=== PATIENT | female | born 1955 | race Caucasian/White ===

== ENCOUNTER → 2017-05-06 | Outpatient (CLI) | payer BC ==
--- NOTE | 2017-05-08 09:46 | MM ---
Reason for exam: screening (asymptomatic). Last mammogram was performed 1 year ago. History: Patient is postmenopausal. Family history of premenopausal breast cancer in mother at age 42. Excisional biopsy of the left breast, August 01, 2006. Excisional biopsy of the right breast, 2004. Took hormonal contraceptives for 5 years beginning at age 18. Taking estrogen for 1 year. Physical Findings: A clinical breast exam by your physician is recommended on an annual basis and results should be correlated with mammographic findings. MG Screening Mammo w CAD Bilateral CC and MLO view(s) were taken. Prior study comparison: April 22, 2016, bilateral MG screening mammo w CAD. March 30, 2015, bilateral MG screening mammo w CAD. January 07, 2014, bilateral digital screening mammo w/CAD. There are scattered fibroglandular densities. No significant changes when compared with prior studies. ASSESSMENT: Benign, BI-RAD 2 RECOMMENDATION: Routine screening mammogram of both breasts in 1 year.
== END | disposition home or self-care (01) ==
LOC: RADMAMWWP 08:51
PROVIDERS: ATTEND Obstetrics & Gynecology
DX: Z12.31 Encounter for screening mammogram for malignant neoplasm of breast (principal)

== ENCOUNTER → 2018-05-14 | Outpatient (CLI) | payer BC ==
--- NOTE | 2018-05-14 11:59 | US ---
EXAMINATION TYPE: US liver DATE OF EXAM: 05/14/2018 COMPARISON: NONE CLINICAL HISTORY: R94.5 ELEVATED LIVER ENZYMES. Elevated LFT's EXAM MEASUREMENTS: Liver Length: 18.6 cm CBD: 0.6 cm Right Kidney: 10.3 x 5.1 x 5.3 cm Pancreas: wnl, tail obscured by overlying bowel gas Liver: Enlarged, difficult to penetrate, limited visualization Gallbladder: Surgically absent Evidence for sonographic Snow's sign: No CBD: wnl Right Kidney: Visualized portions appeared wnl IMPRESSION: 1. Hepatomegaly with underlying fatty hepatic infiltration.
== END | disposition home or self-care (01) ==
LOC: RADUSWWP 10:11
PROVIDERS: ATTEND Family Medicine
DX: K76.0 Fatty (change of) liver, not elsewhere classified (principal); R16.0 Hepatomegaly, not elsewhere classified
CPT/HCPCS: 76705

== ENCOUNTER → 2018-06-03 | Outpatient (CLI) | payer BC ==
--- NOTE | 2018-06-03 16:23 | BD ---
EXAMINATION TYPE: Axial Bone Density DATE OF EXAM: 06/03/2018 COMPARISON: NONE CLINICAL HISTORY: Height: 5 FT 4 1/2 IN Weight: 215 FRAX RISK QUESTIONS: RISK FACTORS HISTORY OF: Active: SOMEWHAT Postmenopausal woman: TOTAL HYST AGE 44 Take estrogen and/or progesterone medications: TAKES KOVARYX How lon YRS MEDICATIONS: Additional Medications: PRILOSEC, TENORMIN, LOSARTIN/HCT,NAPROSEN, ADIPEX, ZYRTEC Additional History: EXAM MEASUREMENTS: Bone mineral densitometry was performed using the [employer] System. Bone mineral density as measured about the Lumbar spine is: ----- L1-L4(G/cm2): 1.278 T Score Values are as follows: ----- L2: 0.7 ----- L3: 0.9 ----- L4: 1.6 ----- L1-L4: 0.8 Bone mineral density has: INCREASED 5.6 % since study of: 2015 Bone mineral density about the R hip (g/cm2): 0.965 Bone mineral density about the L hip (g/cm2): 0.914 T Score values are as follows: -----R Neck: -0.5 -----L Neck: -0.9 -----R Total: -0.2 -----L Total: -0.3 Bone mineral density has: INCREASED 2.7 % since study of: 2015 IMPRESSION: Normal (Values between +1 and -1 indicate normal bone mass). Consider repeating this study in 5 year s or sooner if there is some new clinical indication. NOTE: T-SCORE=SD OF THE YOUNG ADULT MEAN.
--- NOTE | 2018-06-04 13:36 | MM ---
Reason for exam: screening (asymptomatic). Last mammogram was performed 1 year and 1 month ago. History: Patient is postmenopausal. Family history of premenopausal breast cancer in mother at age 42. Excisional biopsy of the left breast, August 01, 2006. Excisional biopsy of the right breast, 2004. Took hormonal contraceptives for 5 years beginning at age 18. Taking estrogen for 1 year. Physical Findings: A clinical breast exam by your physician is recommended on an annual basis and results should be correlated with mammographic findings. MG 3D Screening Mammo W/Cad Bilateral CC and MLO view(s) were taken. Prior study comparison: May 06, 2017, bilateral MG screening mammo w CAD. April 22, 2016, bilateral MG screening mammo w CAD. There are scattered fibroglandular densities. Finding: There are typically benign round, diffuse/scattered and grouped calcifications in both breasts. There is no discrete abnormality. ASSESSMENT: Benign, BI-RAD 2 RECOMMENDATION: Routine screening mammogram of both breasts in 1 year.
== END | disposition home or self-care (01) ==
LOC: RADMAMWWP 09:22
PROVIDERS: ATTEND Obstetrics & Gynecology
DX: Z12.31 Encounter for screening mammogram for malignant neoplasm of breast (principal); N95.1 Menopausal and female climacteric states; Z13.820 Encounter for screening for osteoporosis
CPT/HCPCS: 77063; 77067; 77080

== ENCOUNTER → 2018-09-18 | Outpatient (CLI) | payer BC ==
--- NOTE | 2018-09-18 13:03 | XR ---
EXAMINATION TYPE: XR cervical spine w flex/ext DATE OF EXAM: 09/18/2018 TECHNIQUE: Frontal, lateral, oblique, swimmers, and open mouth view of the cervical spine are obtaine d. Additional flexion and extension views are obtained. HISTORY: cervical spine pain COMPARISON: None FINDINGS: The cervical spine is visualized in its entirety from C1 thru the top of T1 level, it is s atisfactory in alignment without evidence of acute fracture or dislocation. Normal alignment at flexi on, extension and neutral. The pre-vertebral soft tissue appears within normal limits. The C1-C2 art iculation is within normal limits on the open mouth view. The oblique images are within normal limit s. IMPRESSION: No acute fracture or dislocation is seen in the cervical spine. No significant degenerat raj change.
== END | disposition home or self-care (01) ==
LOC: RADXRYALE 11:33
PROVIDERS: ATTEND Family Medicine
DX: M54.2 Cervicalgia (principal)
CPT/HCPCS: 72052

== ENCOUNTER → 2018-10-26 | Outpatient (CLI) | payer BC ==
--- NOTE | 2018-10-26 14:58 | XR ---
EXAMINATION TYPE: XR foot complete LT DATE OF EXAM: 10/26/2018 COMPARISON: None HISTORY: Foot pain TECHNIQUE: Three-view left foot FINDINGS: Plantar calcaneal heel spur is present. No acute fractures or dislocations are evident. Sof t tissues appear normal. IMPRESSION: 1. Plantar calcaneal heel spur.
== END | disposition home or self-care (01) ==
LOC: RADXRYALE 14:31
PROVIDERS: ATTEND Family Medicine
DX: M77.32 Calcaneal spur, left foot (principal); M79.672 Pain in left foot

== ENCOUNTER → 2019-04-20 | Outpatient (CLI) | payer BC ==
--- NOTE | 2019-04-20 11:25 | XR ---
EXAMINATION TYPE: XR hand complete RT DATE OF EXAM: 04/20/2019 CLINICAL HISTORY: Right middle finger pain and swelling distally TECHNIQUE: Frontal, lateral and oblique images of the right hand are obtained. COMPARISON: None. FINDINGS: There is no acute fracture/dislocation evident in the right hand. The joint spaces in the right hand appear within normal limits. Soft tissue prominence is seen dorsally over the distal inter phalangeal joint of the third digit on the lateral view. No osseous erosion or periosteal reaction. IMPRESSION: There is no acute fracture or dislocation in the right hand. No osseous erosion or evide nce of osteomyelitis. Dorsal soft tissue swelling over the distal interphalangeal joint of the digit is seen likely relating to the palpable abnormality. If there is further concern, ultrasound could be performed.
== END | disposition home or self-care (01) ==
LOC: RADXRYALE 10:40
PROVIDERS: ATTEND Family Medicine
DX: M79.89 Other specified soft tissue disorders (principal); M10.9 Gout, unspecified

== ENCOUNTER → 2019-06-21 | Outpatient (CLI) | payer BC ==
--- NOTE | 2019-06-23 11:17 | MM ---
Reason for exam: screening (asymptomatic). Last mammogram was performed 1 year and 1 month ago. History: Patient is postmenopausal. Family history of premenopausal breast cancer in mother at age 42. Excisional biopsy of the left breast, August 01, 2006. Excisional biopsy of the right breast, 2004. Took hormonal contraceptives for 5 years beginning at age 18. Taking estrogen for 1 year. Physical Findings: A clinical breast exam by your physician is recommended on an annual basis and results should be correlated with mammographic findings. MG 3D Screening Mammo W/Cad Bilateral CC and MLO view(s) were taken. Prior study comparison: June 03, 2018, bilateral MG 3d screening mammo w/cad. May 06, 2017, bilateral MG screening mammo w CAD. There are scattered fibroglandular densities. No significant changes when compared with prior studies. ASSESSMENT: Negative, BI-RAD 1 RECOMMENDATION: Routine screening mammogram of both breasts in 1 year.
== END | disposition home or self-care (01) ==
LOC: RADMAMWWP 09:24
PROVIDERS: ATTEND Obstetrics & Gynecology
DX: Z12.31 Encounter for screening mammogram for malignant neoplasm of breast (principal)
CPT/HCPCS: 77063; 77067

== ENCOUNTER → 2020-08-02 | Outpatient (CLI) | payer BC ==
--- NOTE | 2020-08-02 08:51 | BD ---
EXAMINATION TYPE: Axial Bone Density DATE OF EXAM: 08/02/2020 COMPARISON: NONE CLINICAL HISTORY: Height: 5 FT 5 IN Weight: 194 FRAX RISK QUESTIONS: Alcohol (3 or more units per day): NO Family History (Parent hip fracture): NO Glucocorticoids (More than 3mos): NO (Ex: prednisone, prednisolone, methylprednisolone, dexamethasone, and hydrocortisone). History of Fracture in Adulthood: NO Secondary Osteoporosis: 1. Type 1 Diabetes: NO 2. Hyperthyroidism: NO 3. Menopause before 45: NO 4. Malnutrition: NO 5. Chronic liver disease: NO Rheumatoid Arthritis: NO Current Tobacco Use: NO RISK FACTORS HISTORY OF: Family History of Osteoporosis: NO Active: YES Diet low in dairy products/other sources of calcium: NO Postmenopausal woman: TOTAL HYST AGE 44 Take estrogen and/or progesterone medications: TOOK HRT 2-3 YEARS NO LONGER TAKES Lost more than 2 inches in height since high school: NO MEDICATIONS: Additional Medications: TYLENOL ARTHRITIS, PRILOSEC, TENORMIN, LOSARTIN, ZYRTEC, ADIPEX, VIT B12 Additional History: CARPAL TUNNEL SURG EXAM MEASUREMENTS: Bone mineral densitometry was performed using the [employer] System. Bone mineral density as measured about the Lumbar spine is: ----- L1-L4(G/cm2): 1.189 T Score Values are as follows: ----- L2: 0.4 ----- L3: 0.2 ----- L4: 0.1 ----- L1-L4: 0.1 Bone mineral density has: DECREASED -7.6 % since study of: 2017 Bone mineral density about the R hip (g/cm2): 0.889 Bone mineral density about the L hip (g/cm2): 0.833 T Score values are as follows: -----R Neck: -1.1 -----L Neck: -1.5 -----R Total: -1.0 -----L Total: -1.2 Bone mineral density has: DECREASED -11.5 % since study of: 2018 IMPRESSION: Osteopenia NOTE: T-SCORE=SD OF THE YOUNG ADULT MEAN.
--- NOTE | 2020-08-04 09:11 | MM ---
Reason for exam: screening (asymptomatic). Last mammogram was performed 1 year and 1 month ago. History: Patient is postmenopausal. Family history of premenopausal breast cancer in mother at age 42. Excisional biopsy of the left breast, August 01, 2006. Excisional biopsy of the right breast, 2004. Took hormonal contraceptives for 5 years beginning at age 18. Took estrogen for 1 year. Physical Findings: A clinical breast exam by your physician is recommended on an annual basis and results should be correlated with mammographic findings. MG 3D Screening Mammo W/Cad Bilateral CC and MLO view(s) were taken. Prior study comparison: June 21, 2019, bilateral MG 3d screening mammo w/cad. June 03, 2018, bilateral MG 3d screening mammo w/cad. There are scattered fibroglandular densities. No significant changes when compared with prior studies. ASSESSMENT: Benign, BI-RAD 2 RECOMMENDATION: Routine screening mammogram of both breasts in 1 year.
== END | disposition home or self-care (01) ==
LOC: RADBDWWP 07:12
PROVIDERS: ATTEND Obstetrics & Gynecology
DX: Z12.31 Encounter for screening mammogram for malignant neoplasm of breast (principal); Z13.820 Encounter for screening for osteoporosis; M85.80 Other specified disorders of bone density and structure, unspecified site
CPT/HCPCS: 77063; 77067; 77080

== ENCOUNTER → 2021-05-24 | Outpatient (CLI) | payer MEDICARE ==
--- NOTE | 2021-05-25 12:59 | MM ---
Reason for exam: screening (asymptomatic). Last mammogram was performed 10 months ago. History: Patient is postmenopausal. Family history of premenopausal breast cancer in mother at age 42. Excisional biopsy of the left breast, August 01, 2006. Excisional biopsy of the right breast, 2004. Took hormonal contraceptives for 5 years beginning at age 18. Took estrogen for 1 year. Physical Findings: A clinical breast exam by your physician is recommended on an annual basis and results should be correlated with mammographic findings. MG 3D Screening Mammo W/Cad Bilateral CC and MLO view(s) were taken. Prior study comparison: August 02, 2020, bilateral MG 3d screening mammo w/cad. June 21, 2019, bilateral MG 3d screening mammo w/cad. The breast tissue is heterogeneously dense. This may lower the sensitivity of mammography. There is no discrete abnormality. No significant changes when compared with prior studies. ASSESSMENT: Negative, BI-RAD 1 RECOMMENDATION: Routine screening mammogram of both breasts in 1 year.
== END | disposition home or self-care (01) ==
LOC: RADMAMWWP 15:06
PROVIDERS: ATTEND Obstetrics & Gynecology
DX: Z12.31 Encounter for screening mammogram for malignant neoplasm of breast (principal); Z78.0 Asymptomatic menopausal state; Z80.3 Family history of malignant neoplasm of breast; Z79.3 Long term (current) use of hormonal contraceptives
CPT/HCPCS: 77063; 77067

== ENCOUNTER → 2022-05-27 | Outpatient (CLI) | payer MEDICARE ==
--- NOTE | 2022-05-28 09:05 | BD ---
EXAMINATION TYPE: Axial Bone Density DATE OF EXAM: 05/27/2022 COMPARISON: NONE CLINICAL HISTORY: 66 years year old Female. ICD-10 CODE: Z78.0 POST MENOPAUSAL Height: 5 FT 4 1/2 IN Weight: 180 FRAX RISK QUESTIONS: Alcohol (3 or more units per day): NO Family History (Parent hip fracture): NO Glucocorticoids (More than 3mos): NO (Ex: prednisone, prednisolone, methylprednisolone, dexamethasone, and hydrocortisone). History of Fracture in Adulthood: NO Secondary Osteoporosis: 1. Type 1 Diabetes: NO 2. Hyperthyroidism: NO 3. Menopause before 45: NO 4. Malnutrition: NO 5. Chronic liver disease: NO Rheumatoid Arthritis: NO Current Tobacco Use: NO RISK FACTORS HISTORY OF: Surgery to Spine/Hip(right/left)/Wrist (right/left): NO Family History of Osteoporosis: NO Active: NO Diet low in dairy products/other sources of calcium: NO Postmenopausal woman: YES Take estrogen and/or progesterone medications: NONE NOW Lost more than 2 inches in height since high school: NO Frequent falls: NO Poor Health: GOOD Hyperparathyroidism: NO Adrenal Insufficiency: NO MEDICATIONS: Additional Medications: LOSARTAN, H2O PILL, METOPROLOL, OMEPRAZOLE Additional History: 2019 STUDY NOT AVAILABLE FOR COMPARISON EXAM MEASUREMENTS: Bone mineral densitometry was performed using the [employer] System. Bone mineral density as measured about the Lumbar spine is: ----- L1-L4(G/cm2): 1.174 T Score Values are as follows: ----- L1: -0.6 ----- L2: -0.5 ----- L3: 0.4 ----- L4: 0.1 ----- L1-L4: -0.1 Bone mineral density has: DECREASED -9.3 % since study of: 2017 Bone mineral density about the R hip (g/cm2): 0.746 Bone mineral density about the L hip (g/cm2): 0.693 T Score values are as follows: -----R Neck: -2.1 -----L Neck: -2.5 -----R Total: -2.0 -----L Total: -2.4 Bone mineral density has: DECREASED -25.4 % since study of: 2017 FRAX%s: The graph provided illustrates a 13.9 % chance for a major osteoporotic fx and a 3.3 % chance for the hips probability for fx in 10 years time. IMPRESSION: Osteopenia (T Score between -2.5 and -1). There is slightly increased risk of fracture and the patient may be considered for treatment. Re-Screen 2-5 years. NOTE: T-SCORE=SD OF THE YOUNG ADULT MEAN.
--- NOTE | 2022-05-31 18:28 | MM ---
Reason for Exam: Screening (asymptomatic). Last screening mammogram was performed 12 month(s) ago. Patient History: Menarche at age 10. First Full-Term at age 24. Left ovary removed at age 44. Right ovary removed at age 44. Hysterectomy at age 44. Postmenopausal. Patient used Estrogen for 3 years. Hormonal Contraceptives for 5 years from age 18 until age 23. 08/01/2006, Excisional Biopsy on the Left side. 2004, Excisional Biopsy on the Right side. Mother had breast cancer, age 42. Risk Values: Mary Anne 5 year model risk: 5.0%. NCI Lifetime model risk: 15.5%. Prior Study Comparison: 06/21/2019 Bilateral Screening Mammogram, [facility]. 08/02/2020 Bilateral Screening Mammogram, [facility]. 05/24/2021 Bilateral Screening Mammogram, [facility]. Tissue Density: There are scattered fibroglandular densities. Findings: Analyzed By CAD. There is no suspicious group of microcalcifications or new suspicious mass in either breast. Overall Assessment: Negative, BI-RAD 1 Management: Screening Mammogram of both breasts in 1 year. A clinical breast exam by your physician is recommended on an annual basis and results should be correlated with mammographic findings. Electronically signed and approved by: Chava Abbasi DO
== END | disposition home or self-care (01) ==
LOC: RADMAMWWP 15:44
PROVIDERS: ATTEND Obstetrics & Gynecology
DX: Z12.31 Encounter for screening mammogram for malignant neoplasm of breast (principal); M81.0 Age-related osteoporosis without current pathological fracture; Z78.0 Asymptomatic menopausal state; Z80.3 Family history of malignant neoplasm of breast
CPT/HCPCS: 77063; 77067; 77080

== ENCOUNTER → 2022-06-03 | Outpatient (CLI) | payer MEDICARE ==
--- NOTE | 2022-06-03 15:39 | XR ---
EXAMINATION TYPE: XR lumbosacral spine min 4V DATE OF EXAM: 06/03/2022 Comparison: None Clinical History: 66-year-old female [id number] DORSALGIA Findings: Facet arthropathy mid to lower lumbar spine. Trace grade 1 anterolisthesis L3-L4, L4-L5, and L5-S1. R emaining alignment is maintained. Vertebral body heights are preserved. No pars interarticularis defe ct. Cholecystectomy clips. 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 No verte bral compression collapse or malalignment.
== END | disposition home or self-care (01) ==
LOC: RADXRYALE 11:08
PROVIDERS: ATTEND Physician Assistant
DX: M47.816 Spondylosis without myelopathy or radiculopathy, lumbar region (principal); M43.16 Spondylolisthesis, lumbar region
CPT/HCPCS: 72110

== ENCOUNTER → 2024-06-09 | Outpatient (CLI) | payer MEDICARE ==
--- NOTE | 2024-06-14 09:49 | MM ---
Reason for Exam: Screening (asymptomatic). Last screening mammogram was performed 12 month(s) ago. Patient History: Menarche at age 10. First Full-Term at age 24. Left ovary removed at age 44. Right ovary removed at age 44. Hysterectomy at age 44. Postmenopausal. Patient used Estrogen for 3 years. Hormonal Contraceptives for 5 years from age 18 until age 23. 08/01/2006, Excisional Biopsy on the Left side. 2004, Excisional Biopsy on the Right side. Mother had breast cancer, age 42. Risk Values: Mary Anne 5 year model risk: 5.1%. NCI Lifetime model risk: 14.2%. Prior Study Comparison: 05/24/2021 Bilateral Screening Mammogram, [facility]. 05/27/2022 Bilateral MG 3D screening mammo w/cad, [facility]. 05/29/2023 Bilateral MG 3D screening mammo w/cad, [facility]. Tissue Density: The breasts are almost entirely fatty. Findings: Analyzed By CAD. Right breast: There is no suspicious group of microcalcifications or new suspicious mass. Left breast: There is no suspicious group of microcalcifications or new suspicious mass. Overall Assessment: Negative, BI-RAD 1 Management: Screening Mammogram of both breasts in [address] [facility] will attempt to contact patient to return for supplemental views and ultrasound if indicated. Patient should continue monthly self-breast exams. A clinical breast exam by your physician is recommended on an annual basis. This exam should not preclude additional follow-up of suspicious palpable abnormalities. Note on Mary Anne scores and lifetime risk: 1. A Mary Anne score greater than 3% is considered moderate risk. If this is the case, consider specialist referral to assess eligibility for a risk reducing agent. 2. If overall lifetime risk for the development of breast cancer is 20% or higher, the patient may qualify for future screening with alternating mammogram and breast MRI. [facility], , 06/14/2024 9:46 AM. Electronically signed and approved by: Chava Abbasi DO
== END | disposition home or self-care (01) ==
LOC: RADMAMWWP 12:37
PROVIDERS: ATTEND Pediatrics
CPT/HCPCS: 77063; 77067

== ENCOUNTER 2024-08-17 09:31 | Day surgery (SDC) | payer MEDICARE ==
[2024-08-17 10:10] VITALS: TEMP 98.2
[2024-08-17] MEDS: IV FLUID CONTINUATION 1,000 ML IV ONE (10:17)
[2024-08-17] MEDS: LACTATED RINGERS 1,000 ML IV SCH (10:19)
[2024-08-17] MEDS: ONDANSETRON 4 MG/2 ML VIAL IVP STA (10:20)
[2024-08-17] MEDS ORDERED: LIDOCAINE 1% INJ 10MG/ML (20 ML MDV) ONE (11:11)
[2024-08-17] MEDS ORDERED: PROPOFOL 10 MG/ML 20 ML VIAL IV ONE (11:11)
--- NOTE | 2024-08-17 11:14 | P.GSHP ---
History of Present Illness H&P Date: 08/17/24 Chief Complaint: Abnormal Cologuard 69-year-old female here for colonoscopy. Last colonoscopy 7 years ago. That was normal. No family history of colon cancer. Recent Cologuard positive. Past Medical History Past Medical History: GERD/Reflux, Hyperlipidemia, Hypertension, Osteoarthritis (OA) Additional Past Medical History / Comment(s): allergies, questionable irregular rhythm- pt to wear holter monitor. urgency with urination. hx of positive testing with sleep apnea. couldnt tolerate cpap, had sinus surgery that helped. History of Any Multi-Drug Resistant Organisms: None Reported Past Surgical History: Cholecystectomy, Hysterectomy Additional Past Surgical History / Comment(s): sinus surgery , Colonoscopy, rt breast bx. left breast bx, rt rotator cuff repair. lt CTR, Rt CTR, strabismus surgery prema. cataract surgery prema. Past Anesthesia/Blood Transfusion Reactions: Postoperative Nausea & Vomiting (PONV) Additional Past Anesthesia/Blood Transfusion Reaction / Comment(s): slow to wake up Smoking Status: Never smoker - Past Family History Mother Family Medical History: Cancer, Myocardial Infarction (PR) Additional Family Medical History / Comment(s): breast cancer Medications and Allergies Home Medications Medication Instructions Recorded Confirmed Type Acetaminophen [Tylenol Arthritis] 1,300 mg PO DIRECTED 08/11/24 08/17/24 History Ascorbic Acid [Vitamin C] 500 mg PO DAILY 08/11/24 08/11/24 History Atorvastatin Calcium 10 mg PO DAILY 08/11/24 08/17/24 History Cholecalciferol [Vitamin D3 (125 125 mcg PO BID 08/11/24 08/11/24 History Mcg = 5000 Iu)] Ibuprofen [Advil] 400 mg PO MOWEFR 08/11/24 08/11/24 History Losartan Potassium [Cozaar] 100 mg PO DAILY 08/11/24 08/11/24 History Metoprolol Succinate (ER) [Toprol 50 mg PO HS 08/11/24 08/17/24 History Xl] Multivit-Min/Iron/Folic/Lutein 1 each PO DAILY 08/11/24 08/11/24 History [Centrum Silver Women Tablet] Omeprazole 20 mg PO DAILY 08/11/24 08/11/24 History Otc Zyrtec 10 mg PO DAILY 08/11/24 08/17/24 History Unk Osteo Bi Flex 1 tab PO DAILY 08/11/24 08/11/24 History Unk Thera Tears Capsules 1 cap PO DAILY 08/11/24 08/11/24 History Venlafaxine HCl ER [Effexor Xr] 75 mg PO DAILY 08/11/24 08/11/24 History hydroCHLOROthiazide 25 mg PO DAILY 08/11/24 08/17/24 History [Hydrochlorothiazide] Allergies Allergy/AdvReac Type Severity Reaction Status Date / Time codeine AdvReac Vomiting Verified 08/17/24 10:10 Surgical - Exam Vital Signs Temp Pulse Resp BP Pulse Ox 98.2 F 106 H 18 140/83 97 08/17/24 10:09 08/17/24 10:09 08/17/24 10:09 08/17/24 10:09 08/17/24 10:09 Physical exam: General: Well-developed, well-nourished HEENT: Normocephalic, sclerae nonicteric Abdomen: Nontender, nondistended Extremities: No edema Neuro: Alert and oriented Assessment and Plan (1) Positive colorectal cancer screening using Cologuard test Narrative/Plan: Will proceed with colonoscopy at this time. Current Visit: Yes Status: Acute Code(s): R19.5 - OTHER FECAL ABNORMALITIES SNOMED Code(s): 322311549
--- NOTE | 2024-08-17 11:29 | P.PCN ---
Date of Procedure: 08/17/24 Procedure(s) Performed: PREOPERATIVE DIAGNOSIS: Positive Cologuard POSTOPERATIVE DIAGNOSIS: Diverticulosis, tortuous colon PROCEDURE: Colonoscopy ANESTHESIA: MAC SURGEON: Matt Montez M.D. SPECIMENS: None ENDOSCOPIC PROCEDURE: The patient was placed on the endoscopy table in the left decubitus position. The Olympus colonoscope was inserted into the anus and passed under direct visualization to the base of the cecum. The appendiceal orifice was visualized. From that point the scope was slowly withdrawn inspecting all surfaces carefully. There were no neoplastic inflammatory or polypoid lesions throughout the cecum, ascending, transverse, descending, sigmoid and rectum. There was some retained semisolid stool throughout. This limited our visualization slightly. Patient had moderate left-sided diverticulosis with significant tortuosity of the colon. Digital rectal examination was normal. The patient was taken to the recovery room in stable condition per anesthesia guidelines. RECOMMENDATIONS: Resume diet. Repeat colonoscopy 10 years.
[2024-08-17 11:37] VITALS: RESP 16
[2024-08-17 11:49] VITALS: BP 99/67; PULSE 84
== END 2024-08-17 12:04 | disposition home or self-care (01) ==
LOC: ORWHC2ENDO 09:31
PROVIDERS: ATTEND Surgery
DX: Z12.11 Encounter for screening for malignant neoplasm of colon (principal); K57.30 Diverticulosis of large intestine without perforation or abscess without bleeding; K21.9 Gastro-esophageal reflux disease without esophagitis; I10 Essential (primary) hypertension; E78.5 Hyperlipidemia, unspecified; G47.30 Sleep apnea, unspecified; M19.90 Unspecified osteoarthritis, unspecified site; F32.A Depression, unspecified; Z91.89 Other specified personal risk factors, not elsewhere classified; Z79.899 Other long term (current) drug therapy; Z88.5 Allergy status to narcotic agent
CPT/HCPCS: J2405; J2003; J2704; G0121; 45378

== ENCOUNTER → 2024-08-30 | Outpatient (CLI) | payer MEDICARE ==
--- NOTE | 2024-09-07 15:07 | P.EPPROC ---
- EP Procedure Note Electrophysiology Procedure Note: Holter monitor shows sinus mechanism, heart rates ranging from 57-127 beats a minute Average heart rates in the 70s PVC burden of about 4-5% No nonsustained VT
--- NOTE | 2024-09-10 10:28 | HM ---
Holter monitor shows sinus mechanism, heart rates ranging from 57-127 beats a minute Average heart rates in the 70s PVC burden of about 4-5% No nonsustained VT MTDD
== END | disposition home or self-care (01) ==
LOC: RADECHMAIN 07:57
PROVIDERS: ATTEND Pediatrics
DX: I49.3 Ventricular premature depolarization (principal)
CPT/HCPCS: 93225

== ENCOUNTER → 2024-11-16 | Outpatient (CLI) | payer MEDICARE ==
--- NOTE | 2024-11-16 17:57 | CA ---
Transthoracic Echo Report Name: Irlanda Rider Age: 69 Gender: F : 1955 Exam Date: 11/16/2024 13:42 Exam Location: [facility] Ht (in): 65 Wt (lb): 196 Ordering Physician: Rolo Sorenson MD Attending/Referring Phys: Amy Ro PAC Machine Staker Yaima Schwartz RDCS Procedure CPT: Indications: I49.3 ventricular premature depolarization Cardiac Hx: Technical Quality: Fair Contrast 1: Total Dose (mL): Contrast 2: Total Dose (mL): MEASUREMENTS (Male / Female) Normal Values 2D ECHO LV Diastolic Diameter PLAX 4.2 cm 4.2 - 5.9 / 3.9 - 5.3 cm LV Systolic Diameter PLAX 2.8 cm IVS Diastolic Thickness 1.2 cm 0.6 - 1.0 / 0.6 - 0.9 cm LVPW Diastolic Thickness 0.8 cm 0.6 - 1.0 / 0.6 - 0.9 cm LV Relative Wall Thickness 0.5 LVOT Diameter 2.3 cm LV Diastolic Volume MOD BP 81.5 cm??? 67 - 155 / 56 - 104 cm??? LV Systolic Volume MOD BP 36.3 cm??? 22 - 58 / 19 - 49 cm??? LV Ejection Fraction MOD BP 55.5 % >= 55 % LV Cardiac Index MOD BP 1586.5 cm???/min???m??? LV Diastolic Volume MOD 4C 86.1 cm??? LV Systolic Volume MOD 4C 39.5 cm??? LV Ejection Fraction MOD 4C 54.1 % LV Cardiac Index MOD 4C 1636.2 cm???/min???m??? LV Diastolic Length 4C 7.8 cm LV Systolic Length 4C 7.0 cm LV Diastolic Volume MOD 2C 72.9 cm??? LV Systolic Volume MOD 2C 30.5 cm??? LV Ejection Fraction MOD 2C 58.2 % LV Cardiac Index MOD 2C 1486.6 cm???/min???m??? LV Diastolic Length 2C 7.4 cm LV Systolic Length 2C 6.4 cm LA Volume 37.4 cm??? 18 - 58 / 22 - 52 cm??? LA Volume Index 18.2 cm???/m??? 16 - 28 cm???/m??? Ascending Aorta Diameter 3.5 cm DOPPLER AV Peak Velocity 123.9 cm/s AV Peak Gradient 6.1 mmHg AV Mean Velocity 85.1 cm/s AV Mean Gradient 3.2 mmHg AV Velocity Time Integral 23.5 cm LVOT Peak Velocity 87.6 cm/s LVOT Peak Gradient 3.1 mmHg LVOT Velocity Time Integral 15.5 cm LVOT Stroke Volume 66.9 cm??? LVOT Stroke Volume Index 34.1 ml/m??? LVOT Cardiac Index 2348.5 cm???/min???m??? AV Area Cont Eq vti 2.8 cm??? AV Area Cont Eq pk 3.1 cm??? MV Area PHT 2.7 cm??? Mitral E Point Velocity 58.6 cm/s Mitral A Point Velocity 72.5 cm/s Mitral E to A Ratio 0.8 MV Deceleration Time 285.9 ms TR Peak Velocity 258.6 cm/s TR Peak Gradient 26.8 mmHg Right Atrial Pressure 10.0 mmHg Pulmonary Artery Systolic Pressu 36.8 mmHg Right Ventricular Systolic Press 36.8 mmHg PV Peak Velocity 72.3 cm/s PV Peak Gradient 2.1 mmHg FINDINGS Left Ventricle Left ventricular ejection fraction is estimated at 55-60 %. Mildly increased septal wall thickness. Left ventricular cavity size normal. No obvious regional wall motion abnormalities. Right Ventricle Normal right ventricular size and function. Mild pulmonary hypertension. Right Atrium Normal right atrial size. Left Atrium Normal left atrial size. Mitral Valve Structurally normal mitral valve. No evidence for mitral valve prolapse. No mitral stenosis. Mild mitral regurgitation. Aortic Valve Trileaflet aortic valve. No aortic stenosis. Trace aortic regurgitation. Tricuspid Valve Structurally normal tricuspid valve. No tricuspid stenosis. Mild to moderate moderate tricuspid regurgitation. Pulmonic Valve Structurally normal pulmonic valve. No pulmonic stenosis. Trace pulmonic regurgitation. Pericardium No pericardial effusion. Aorta Normal size aortic root and proximal ascending aorta. CONCLUSIONS 1. Normal left ventricular size and systolic function 2. Mild to moderate tricuspid regurgitation with mild pulmonary hypertension 3. Mild mitral regurgitation Previewed by: Dr. Mary Jo Stratton MD (Electronically Signed) Final Date: 16 November 2024 17:56
== END | disposition home or self-care (01) ==
LOC: RADECHMAIN 13:32
PROVIDERS: ATTEND Pediatrics
DX: I08.1 Rheumatic disorders of both mitral and tricuspid valves (principal); I49.3 Ventricular premature depolarization; I27.20 Pulmonary hypertension, unspecified
CPT/HCPCS: 93306